=== PATIENT | female | born 2005 | race Two or more races ===

== ENCOUNTER 2025-05-15 20:04 | Emergency (ER) | payer OTHER, SELFPAY ==
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
[2025-05-15 20:08] VITALS: BP 132/65; PULSE 102; RESP 18; TEMP 36.6; O2SAT 100
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
[2025-05-15] MEDS: ONDANSETRON HCL ODT 4 MG TABLET PO (20:51)
--- OUTSIDE RECORDS SUMMARY | 2025-05-15 21:26 | XMS_ITS | Clinical Summary ---
Author Organization [facility] Address [address] [place] [address] Care Team Providers Care Survey Technician Name Role Phone Judie Tamayo MD Primary Care Provider Source Comments [facility],non-owned Affiliates and Associated Physician Practices is amultiple site organization consisting of ambulatory clinics and hospital sitesin [place], [place], [place] and [place]. This disclosure is being madepursuant to the Care Everywhere program and may not contain all information available regarding this patient. Last updated 18.[facility] Allergies Active Allergy Reactions Criticality Noted Date Comments Bupropion Rash,Urticaria Medium 09/18/2021 Medications * This document contains information received from the source organization and may not represent a complete record from that organization. * Be aware that medications may not be up to date on this document. Alwaysverify current medications with the patient. cetirizine (ZyrTEC) 10 MG tabletIndication s:Allergic rhinitis, unspecified seasonality, unspecified trigger Take 1 (one) tablet by mouth once daily 100 tablet 3 3 Active Additional Information Patient not taking.Reported on 07/29/2023 fluticasone propionate (Flonase) 50 MCG/ACT nasal sprayIndications :Seasonal Allergic Rhinitis [place] 1 (one) spray into each nostril once daily Reasons: Hayfever 16 g 5 Active Additional Information Patient not taking.Reported on 07/29/2023 Active Problems Problem Noted Date Diagnosed Date Dysmenorrhea in adolescent 10/11/2018 Seasonal allergic rhinitis due to pollen 019 Immunizations Immunization Administration Dates Next Due DTaP VACCINE IM (6wk-6yrs) 11/21/2009,,2005,10/01,2005 HEP A PEDS 2 DOSE 10/11/2018,06/22/2006 HEP B VACCINE, PED/ADOL 2005,2005, HIB BOOSTER 2005,2005,2005 HIB-PRP-T 4 DOSE 03/15/2007 Human Papilloma Virus Nineva lent Vaccine 12/12/2019,10/11/2018 INFLUENZA VACCINE 03/26/2006 MENINGOCOCCAL ACWY (MCV4P) VAC IM 10/11/2018 MMR 11/21/2009,06/22/2006 Meningococcal ACWY (Menquadfi) Vac IM 01/25/2023 PNEUMOCOCCAL CONJ, PEDS 2005,2005, PNEUMOCOCCAL PCV7 CONJ, PEDS 03/15/2007, 2005,2005,08/03 POLIO IPV 11/11/2009, 6,2005,08/03 TDAP (7yrs+) 01/05/2017 VARICELLA 03/15/2007,09/20/2006 Family History Medical History Relation Name Comments Asthma Maternal Uncle Relation Name Status Comments Father Alive Maternal Uncle Mother Alive Social History Tobacco Use Types Packs/Day Years Used Date Smoking Tobacco: Never Smokeless Tobacco: Never Tobacco Cessation:Counseling Given: Not Answered Alcohol Use Standard Drinks/Week Comments Never 0 (1 standard drink = 0.6 oz pur e alcohol) AUDIT-C Answer Date Recorded Q1: How often do you have a drink containing alc ohol? Never 08/30/2021 Average Number of Drinks Not on file 022 Q3: How often do you have si x or more drinks on one occasion? Never 08/30/2021 Comments No Sex and Gender Information Value Date Recorded Sex Assigned at Not on file Legal Sex Female 7:51 AM DRIVER GUARD Gender Identity Not on file Sexual Orientation Not on file Last Filed Vital Signs Vital Sign Reading Time Taken Comments Blood Pressure 112/64 07/29/2023 1:59 PM DRIVER GUARD Pulse 61 01/25/2023 4:13 PM CDT Temperature 36.9 C (98.5 F) 09/18/2021 4:13 PM CDT Respiratory Rate 16 09/18/2021 4:13 PM CDT Oxygen Saturation 100% 09/18/2021 4:13 PM CDT Inhaled Oxygen Concentration - - Weight 54.7 kg (120 lb 9.6 oz) 07/29/2023 1:59 P M DRIVER GUARD Height 159.5 cm (5' 2.8) 07/29/2023 1:59 PM DRIVER GUARD Body Mass Index 21.5 07/29/2023 1:59 PM DRIVER GUARD Body Mass Index Percentile 52.39% 07/29/2023 1:5 9 PM DRIVER GUARD Growth Chart: [facility] (Girls, 2- 20 Years) Plan of Treatment Health Maintenance Due Date Last Done Comments HIV SCREENING 2020 MENINGOCOCCAL (Group B) VACC INE SHARED DECISION-MAKING (1 of 2 - Standard) 2021 HEPATITIS C SCREENING 06/01/2023 DEPRESSION SCREENING 06/06/2024 CHLAMYDIA/GONORRHEA SCREENING 07/29/2024 07/29/2023 COVID-19 VACCINE (3 - 2024-2 6 season) 2025 11/26/2020, 11/05/2020 INFLUENZA VACCINE (#1) 2025 03/23/2011, 2005 DTAP/TDAP/TD VACCINES (7 - T d or Tdap) 01/05/2027 01/05/2017, 11/21/2009, 03/15/2007, Additional history exists ZOSTER VACCINE (1 of 2) 2055 HEPATITIS B VACCINE Completed 2005, 2005, 2005 HIB VACCINE Completed 03/15/2007, 01/2006, 2005, Additional history exists PNEUMOCOCCAL VACCINE Completed 03/15/2007, 2005, 2005, Additional history exists HPV VACCINE Completed 12/12/2019, 10/11/2018 MENINGOCOCCAL GROUPS A/C/Y/W VACCINE Completed 01/25/2023, 10/11/2018 Goals Goal Patient Goal Type Associated Problems Recent Progress Patient-Stated? Author Exercise 3X per week (30 min per time) Exercise On track( 9:51 AM CDT) No Linda Brown MA Use safety retraint in car Lifestyle On track( 9:51 AM CDT) No Linda Brown MA Procedures Procedure Name Priority Date/Time Associated Diagnosis Comments CHLAMYDIA + GC + TRICH DNA AMPL Routine 07/29/2023 2:27 PM DRIVER GUARD Well woman exam with routine gynecological exam Screen for STD (sexually transmitted disease) from Last 3 Months or Most Recently Relevant to Health Maintenance Results * CHLAMYDIA + GC + TRICH DNA AMPL (07/29/2023 2:27 PM DRIVER GUARD) Chlamydia trachomatis YAIMA Negative Negative [facility] INSURANCE BILL GC DNA Probe Negative Negative [facility] INSURANCE BILL Trichomonas vaginalis by YAIMA Negative Negative [facility] INSURANCE BILL Microbiology ENTIRE ENDOCERVIX / Unknown 07/29/2023 2:27 PM DRIVER GUARD 07/29/2023 Narrative Resulting Agency Comment Lab Testing performed at: [facility] [id number] Bryon Bush MD LAB - MICROBIOLOGY ORDERABLES Final Result [facility] INSURANCE BILL [address] [place] [address] from Last 3 Months or Most Recently Relevant to Health Maintenance Insurance [facility] MEDICAID - [facility] COMMUNITY PLAN [facility] MEDICAID - [place] MEDICAID - [facility] COMMUNITY PLAN [place]ICAID - [facility] COMMUNITY PLAN Care Teams Survey Technician Relationship Specialty Start Date End Date Judie Tamayo MD [address] [place] [address] PCP - General Pediatrics 10/05/22
--- OUTSIDE RECORDS SUMMARY | 2025-05-15 21:27 | XMS_ITS | Patient Health Record ---
Author Organization [facility] Address [address] [facility] [address] [place] [address] Care Team Providers Care Assembler Brazer Name Role Phone Marcie Warren [phone] Allergies Allergen (clinical drug ingredient) Drug/Non Drug Allergy documented on EMR Reaction Allergy Type Onset Date Status Wellbutrin hives Drug Allergy Active Latex Latex Unknown Allergy Active Reason For Referral No Information Medications Medication SIG (Take, Route, Frequency, Duration) Notes Start Date End Date Status Escitalopram Oxalate 20 MG Tablet 1 tablet at bedtime Orally Once a day; Duration: 30 days d/c 10mg Active Biotin 5000 Active Vitamin B 12 01/11/2024 Active Social History Tobacco Use: Social History Observation Description Date Details (start date - stop date) Former Smoker NA - NA Sex Assigned At : Social History Observation Description Sex Assigned At Female Social History Social History Social Info Question Answer Notes Household: Marital Status: Single Drug/Alcohol: Social Info Question Answer Notes Drugs Have you used drugs other than those for medical reasons in the past 12 months? No AUDIT-C (Standard) Did you have a drink containing alcohol in the past year? No Tobacco Use: Social Info Question Answer Notes Tobacco Control (Standard) Tobacco use: Former smoker Section Notes: Lives in [place] with her grand mother. No kids. Grew up in [place] with my mom, has 2 half-brothers. 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 Lives in [place] with her grand mother. No kids. Grew up in [place] with my mom, has 2 half-brothers. 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 Problems Problem Type SNOMED Code ICD Code Onset Dates Problem Status W/U Status Risk Notes Problem Recurrent major depression in full remission (25253111) Major depressive disorder, recurrent, in full remission (F33.42) Active confirmed Problem Generalized anxiety disorder (12912673) Generalized anxiety disorder (F41.1) Active confirmed Problem Unable to concentrate (finding) (56692930) Difficulty concentrating (R41.840) Active confirmed Problem Insomnia disorder related to another mental disorder (83179505) Insomnia related to another mental disorder (F51.05) Active confirmed Plan Of Treatment No Information Insurance Providers Payer Name Payer Address Payer Phone Subscriber Number Group Number Insured Name Patient Relationship to Insured Coverage Start Date Coverage End Date [facility] [address] [place] [phone] [id number] Karina Zapien Self - patient is the insured Medical (General) History Medical History History ICD Code Past Psychiatric History: Anxiety Disord er,Major Depressive Episode abdominal aortic aneurysm: No atrial fibrillation: No chronic fatigue syndrome: No essential tremor: No hyperlipidemia: No hypertension: No Parkinson's disease: No restless leg syndrome: No stroke: No subdural hematoma: No type 1 diabetes mellitus: No type 2 diabetes mellitus: No vitamin B12 deficiency: No vitamin D deficiency: No
[2025-05-15 22:31] VITALS: BP 111/67; PULSE 73; RESP 17; O2SAT 100
== END 2025-05-15 22:32 | disposition home or self-care (01) ==
PROVIDERS: Emergency Provider Emergency Medicine
DX: S13.4XXA Sprain of ligaments of cervical spine, initial encounter (principal); V43.52XA Car driver injured in collision with other type car in traffic accident, initial encounter; W22.10XA Striking against or struck by unspecified automobile airbag, initial encounter
CPT/HCPCS: 70450; 72125; 99284; A9270